=== PATIENT | female | born 1995 | race Caucasian/White ===

== ENCOUNTER 2024-11-12 23:31 | Emergency (ER) | payer SELFPAY ==
[~2024-11-12] VITALS: Ht 175.3 cm; Wt 47.7 kg
[2024-11-13 00:18] LABS: BASOPHILS % (AUTO) 0.2 % (0.0-2.0); EOSINOPHILS % (AUTO) 0.1 % (1.0-6.0); HEMATOCRIT 42.2 % (36-46); HEMOGLOBIN 13.9 g/dL (12.0-16.0); LYMPHOCYTES # (AUTO) 1.2 K/uL (1.0-4.8); MEAN CORPUSCULAR HEMOGLOBIN 29.3 pg (26.0-34.0); MEAN CORPUSCULAR HGB CONC 32.9 G/dL (31.0-37.0); MEAN CORPUSCULAR VOLUME 89 fL (80-100); MONOCYTES # (AUTO) 0.6 K/uL (0.1-1.0); MONOCYTES % (AUTO) 4.8 % (2.0-9.0); NEUTROPHILS # (AUTO) 11.2 K/uL (1.8-7.7); PLATELET COUNT (AUTO) 316 K/uL (150-450); RED BLOOD CELL COUNT(AUTO) 4.74 MIL/uL (4.00-5.20); RED CELL DISTRIBUTION WIDTH 12.5 % (11.5-14.5)
[2024-11-13 00:25] LABS: ANION GAP 12 mmol/L (8-16); CALCIUM, TOTAL 9.2 mg/dL (8.8-10.5); CARBON DIOXIDE 26 mmol/L (22-29); CHLORIDE 102 mmol/L (98-107); CREATININE 0.67 mg/dL (0.60-1.30); GLOMERULAR FILTR. RATE CALC > 60 mL/min (>60); GLUCOSE,RANDOM 119 mg/dL (70-110); POTASSIUM 3.7 mmol/L (3.5-5.1); SODIUM SERUM 140 mmol/L (136-145); UREA NITROGEN, BLOOD 12 mg/dL (7-18)
[2024-11-13] MEDS: SODIUM CHLORIDE 0.9% 1,000 ML IV ONE (00:26)
[2024-11-13 00:27] VITALS: TEMP 98.3
[2024-11-13 00:35] LABS: NEUTROPHILS % (AUTO) 85.9 % (40.0-70.0)
[2024-11-13 00:37] LABS: ALANINE AMINOTRANSFERASE 19 U/L (12-78); ALKALINE PHOSPHATASE 64 U/L (46-116); ASPARTATE AMINOTRANSFERASE 11 U/L (15-37); BILIRUBIN,TOTAL 0.5 mg/dL (0.1-1.0); HCG,QUANTITATIVE < 1 mIU/mL (0-6); LIPASE 27 U/L (16-77); TOTAL PROTEIN, SERUM 7.8 g/dL (6.4-8.2)
[2024-11-13] MEDS: MORPHINE SULFATE 2 MG/ML SYRINGE IVP ONE (01:18)
[2024-11-13 02:30] VITALS: BP 119/72; PULSE 72; RESP 16; O2SAT 99
[2024-11-13] MEDS ORDERED: DICY20TA95 PO (04:07)
[2024-11-13] MEDS ORDERED: POLY17PO62 PO (04:07)
== END 2024-11-13 04:08 | disposition home or self-care (01) ==
LOC: EMS 23:39
DX: R10.84 Generalized abdominal pain (principal); K58.8 Other irritable bowel syndrome
CPT/HCPCS: 99285; 74176; 80048; 80076; 83690; 84702; 85025; 36415; 96374; 96361; J2270; J7030; 99284